=== PATIENT | female | born 1975 | race Hispanic/Latino ===

== ENCOUNTER 2017-10-02 00:08 | Emergency (ER) | payer BC ==
[~2017-10-02 00:08] MED LIST: CIPR-245 PO; FAMO-136 PO; METR500T PO
[2017-10-02 00:45] LABS: EOSINOPHILS % (AUTO) 2.6 % (0.0-8.0); HEMATOCRIT 42.1 % (36-48); LYMPHOCYTES % (AUTO) 19.3 % (21.0-51.0); MEAN CORPUSCULAR HEMOGLOBIN 29.3 pg (27.0-33.0); MEAN CORPUSCULAR HGB CONC 34.5 g/dL (32.0-36.0); MONOCYTES % (AUTO) 6.3 % (3.0-13.0); NEUTROPHILS % (AUTO) 70.8 % (40.0-77.0); PLATELET COUNT (AUTO) 273 K/uL (130-400); RED BLOOD CELL COUNT(AUTO) 4.95 MIL/uL (4.00-5.50); RED CELL DISTRIBUTION WIDTH 13.2 % (11.0-15.5); WHITE BLOOD COUNT (AUTO) 14.2 K/uL (4.8-10.8)
[2017-10-02 00:48] LABS: APPEARANCE,URINE Clear (CLEAR); BILIRUBIN,URINE Negative (NEGATIVE); COLOR,URINE Yellow (YELLOW); GLUCOSE, URINE (UA) Negative (NEGATIVE); KETONES,URINE Negative (NEGATIVE); LEUKOCYTE ESTERASE ,URINE Moderate (NEGATIVE); NITRATE,URINE Negative (NEGATIVE); OCCULT BLOOD,URINE Negative (NEGATIVE); PH,URINE 5.5 (5.0-8.0); PROTEIN,URINE Negative (NEGATIVE)
[2017-10-02 00:55] LABS: BACTERIA,URINE None Seen /HPF (None Seen); RBC,URINE None Seen /HPF (0-1); SQUAMOUS EPITHELIAL CELL,UR Few /HPF (0-2); WBC,URINE 0-1 /HPF (0-1)
[2017-10-02 00:56] LABS: CREATININE 0.7 mg/dL (0.5-1.5); POTASSIUM 3.6 mmol/L (3.5-5.1)
[2017-10-02 01:01] LABS: BILIRUBIN,TOTAL 0.2 mg/dL (0.2-1.0); TOTAL PROTEIN, SERUM 8.1 g/dL (6.0-8.3)
[2017-10-02 01:23] LABS: AMPHET/METH SCREEN,URINE NEGATIVE (NEGATIVE); BENZODIAZEPINES SCREEN,URINE NEGATIVE (NEGATIVE); CANNABINOID SCREEN,URINE NEGATIVE (NEGATIVE); COCAINE SCREEN,URINE NEGATIVE (NEGATIVE); OPIATE SCREEN,URINE NEGATIVE (NEGATIVE); PHENCYCLIDINE SCREEN,URINE NEGATIVE (NEGATIVE)
[2017-10-02] MEDS ORDERED: LIDOCAINE HCL 1% 20 ML VIAL ONE (01:55)
[2017-10-02] MEDS ORDERED: DEXAMETHASONE SOD PHOSPHATE 10MG/ML 1ML VIAL ONE (01:55)
[2017-10-02] MEDS ORDERED: CEFTRIAXONE SODIUM 1 GM ONE (01:56)
[2017-10-02 02:24] LABS: BARBITURATE SCREEN, URINE NEGATIVE (NEGATIVE)
== END 2017-10-02 02:25 | disposition home or self-care (01) ==
LOC: EDH 00:08
DX: J18.9 Pneumonia, unspecified organism (principal)
CPT/HCPCS: 36415; 71046; 80053; 80305; 81001; 83880; 84484; 85025; 87804 ×2; 93005; 96372 ×2; 99285; J0696; J1100

== ENCOUNTER 2018-10-19 23:05 | Emergency (ER) | payer BC ==
[~2018-10-19 23:05] MED LIST changes: -CIPR-245 PO; -FAMO-136 PO; +IBUP-2353 PO; +LEVE500T8 PO; +LEVO500T2 PO; -METR500T PO
== END 2018-10-20 00:13 | disposition home or self-care (01) ==
LOC: EDH 23:05
DX: S50.01XA Contusion of right elbow, initial encounter (principal); Z87.442 Personal history of urinary calculi; Z98.51 Tubal ligation status; Z88.1 Allergy status to other antibiotic agents; W18.39XA Other fall on same level, initial encounter; Y93.89 Activity, other specified; Y92.098 Other place in other non-institutional residence as the place of occurrence of the external cause; Y99.8 Other external cause status
CPT/HCPCS: 73080

== ENCOUNTER 2019-01-15 17:25 | Emergency (ER) | payer BC ==
[2019-01-15] MEDS ORDERED: KETOROLAC TROMETHAMINE 15MG/ML ONE (17:47)
[2019-01-15] MEDS ORDERED: ONDANSETRON HCL 4 MG/2 ML VIAL ONE (17:47)
[2019-01-15] MEDS ORDERED: SODIUM CHLORIDE 0.9% 1000ML 1,000 ML IV ONE (17:47)
[2019-01-15 18:05] LABS: APPEARANCE,URINE Clear (CLEAR); BILIRUBIN,URINE Negative (NEGATIVE); COLOR,URINE Yellow (YELLOW); GLUCOSE, URINE (UA) Negative (NEGATIVE); KETONES,URINE Negative (NEGATIVE); LEUKOCYTE ESTERASE ,URINE Moderate (NEGATIVE); NITRATE,URINE Negative (NEGATIVE); OCCULT BLOOD,URINE Negative (NEGATIVE); PH,URINE 5.5 (5.0-8.0); PROTEIN,URINE Negative (NEGATIVE)
[2019-01-15 18:21] LABS: HCG,QUAL RESULT NEGATIVE (NEGATIVE)
[2019-01-15 18:21] LABS: BASOPHILS % (AUTO) 0.7 % (0.0-5.0); EOSINOPHILS % (AUTO) 1.7 % (0.0-8.0); HEMATOCRIT 41.7 % (36-48); LYMPHOCYTES % (AUTO) 11.9 % (21.0-51.0); MEAN CORPUSCULAR HEMOGLOBIN 29.2 pg (27.0-33.0); MEAN CORPUSCULAR HGB CONC 33.8 g/dL (32.0-36.0); MEAN CORPUSCULAR VOLUME 86.4 fL (79-99); MONOCYTES % (AUTO) 6.4 % (3.0-13.0); NEUTROPHILS % (AUTO) 79.3 % (40.0-77.0); NUCLEATED RED BLOOD CELLS 0.1 % (0.0-0.19); PLATELET COUNT (AUTO) 264 K/uL (130-400); RED BLOOD CELL COUNT(AUTO) 4.83 MIL/uL (4.00-5.50); RED CELL DISTRIBUTION WIDTH 13.2 % (11.0-15.5); WHITE BLOOD COUNT (AUTO) 12.7 K/uL (4.8-10.8)
[2019-01-15 18:37] LABS: CREATININE 0.7 mg/dL (0.5-1.5); POTASSIUM 3.6 mmol/L (3.5-5.1)
[2019-01-15 18:40] LABS: INR 0.97 (0.85-1.15); PARTIAL THROMBOPLASTIN TIME 31.9 SEC (26.3-35.5); PROTHROMBIN TIME 10.2 SEC (9.6-11.6)
[2019-01-15 18:41] LABS: ALBUMIN 3.8 g/dL (3.5-5.0); BILIRUBIN,TOTAL 0.7 mg/dL (0.2-1.0); TOTAL PROTEIN, SERUM 7.9 g/dL (6.0-8.3)
[2019-01-15 18:43] LABS: RBC,URINE 0-1 /HPF (0-1)
[2019-01-15 18:44] LABS: BACTERIA,URINE Few /HPF (None Seen); MUCUS,URINE Few LPF (None Seen); SQUAMOUS EPITHELIAL CELL,UR Few /HPF (0-2)
[2019-01-15] MEDS ORDERED: METRONIDAZOLE 500 MG TABLET ONE (20:00)
[2019-01-15] MEDS ORDERED: LEVOFLOXACIN 500 MG TABLET ONE (20:00)
== END 2019-01-15 21:22 | disposition home or self-care (01) ==
LOC: EDH 17:25
DX: K57.32 Diverticulitis of large intestine without perforation or abscess without bleeding (principal); R11.10 Vomiting, unspecified; R19.7 Diarrhea, unspecified; Z88.6 Allergy status to analgesic agent; Z87.442 Personal history of urinary calculi
CPT/HCPCS: 36415; 74176; 80053; 81001; 81025; 83690; 85025; 85610; 85730; 96361; 96374; 96375; 99285; J1885; J2405; J7030

== ENCOUNTER 2021-03-25 11:38 | Emergency (ER) | payer BC, OTHER ==
[~2021-03-25] VITALS: Ht 162.6 cm; Wt 77.6 kg
[~2021-03-25 11:38] MED LIST changes: -IBUP-2353 PO; +IBUP-2784 PO; +LEVE-43 PO; -LEVE500T8 PO
[2021-03-25 12:14] LABS: APPEARANCE,URINE Cloudy (CLEAR); BILIRUBIN,URINE Negative (NEGATIVE); COLOR,URINE Dark Yellow (YELLOW); GLUCOSE, URINE (UA) Negative (NEGATIVE); KETONES,URINE Trace mg/dL (NEGATIVE); LEUKOCYTE ESTERASE ,URINE Moderate (NEGATIVE); NITRATE,URINE Positive (NEGATIVE); OCCULT BLOOD,URINE Negative (NEGATIVE); PH,URINE 5.5 (5.0-8.0); PROTEIN,URINE Trace mg/dL (NEGATIVE)
[2021-03-25 12:22] LABS: AMPHET/METH SCREEN,URINE NEGATIVE (NEGATIVE); BARBITURATE SCREEN, URINE NEGATIVE (NEGATIVE); BENZODIAZEPINES SCREEN,URINE NEGATIVE (NEGATIVE); CANNABINOID SCREEN,URINE NEGATIVE (NEGATIVE); COCAINE SCREEN,URINE NEGATIVE (NEGATIVE); OPIATE SCREEN,URINE NEGATIVE (NEGATIVE); PHENCYCLIDINE SCREEN,URINE NEGATIVE (NEGATIVE)
[2021-03-25 12:25] LABS: BACTERIA,URINE Many /HPF (None Seen); RBC,URINE 0-1 /HPF (0-1)
[2021-03-25 12:26] LABS: MUCUS,URINE Few LPF (None Seen); SQUAMOUS EPITHELIAL CELL,UR Few /HPF (0-2)
[2021-03-25] MEDS ORDERED: KETOROLAC 30MG VIAL (30MG/ML) IV STA (12:31)
[2021-03-25 12:37] LABS: HCG,QUAL RESULT NEGATIVE (NEGATIVE)
[2021-03-25] MEDS ORDERED: NAPR500T6 PO (14:23)
[2021-03-25 14:38] VITALS: BP 130/69
== END 2021-03-25 14:40 | disposition home or self-care (01) ==
LOC: EDH 11:38
DX: M54.50 Low back pain, unspecified (principal)
CPT/HCPCS: 72100; 80305; 81001; 81025; 87077; 87088; 87186; 96374; 99284; J1885

== ENCOUNTER 2023-02-10 16:17 | Emergency (ER) | payer BC, OTHER ==
[~2023-02-10] VITALS: Ht 162.6 cm; Wt 81.6 kg
[~2023-02-10 16:17] MED LIST changes: +NAPR500T6 PO
[2023-02-10 17:09] VITALS: BP 126/84; PULSE 68; RESP 16; O2SAT 99
== END 2023-02-10 21:03 | disposition left against medical advice (07) ==
LOC: EDH 16:17
DX: R42 Dizziness and giddiness (principal); Z53.21 Procedure and treatment not carried out due to patient leaving prior to being seen by health care provider

== ENCOUNTER 2025-02-21 16:31 | Emergency (ER) | payer BC, OTHER ==
[~2025-02-21] VITALS: Ht 165.1 cm; Wt 78.0 kg
[~2025-02-21 16:31] MED LIST changes: +NAPR-1506 PO; -NAPR500T6 PO
--- NOTE | 2025-02-21 16:46 | ERN ---
ED Note History of Present Illness Stated Complaint: COVID Chief Complaint: Cough Time Seen by MD: 16:45 Time Seen by Midlevel: 16:50 Dictation: 49-year-old female coming in with complaints of generalized body weakness and aches, throat pain. Patient states he took a COVID test today and was positive. Denies having any chest pain, short of breath, headaches, nausea or vomiting. Allergies: Coded Allergies: No Known Allergies (Verified Allergy, Unknown, 11/01/14) ceftriaxone (Unverified Allergy, Unknown, 02/05/18) Home Meds Active Scripts Naproxen (Naproxen) 500 Mg Tablet.dr, 500 MG PO BIDPC, #30 TAB Prov:RAD MANRIQUE NP 03/25/21 Levofloxacin (Levaquin) 500 Mg Tablet, 500 MG PO DAILY for 5 Days, TAB Prov:TRUE HOUSEP 02/07/18 Levetiracetam (Keppra) 500 Mg Tablet, 500 MG PO BID for 30 Days, TAB Prov:TRUE HOUSEP 02/07/18 Reported Medications Ibuprofen (Ibuprofen 200 mg Tablet) 200 Mg Tablet, 400 MG PO DAILY PRN for PAIN LEVEL 1 TO 5, TAB 02/05/18 Past Medical History Past Medical History: Hypertension, Seizure Surgical History: BTL Review of System Dictation Constitutional: Negative for fever,chills, and weight loss Eyes: Negative for injury, pain,redness, and discharge ENT: Negative for injury,pain or swelling, complaining of sore throat Cardiovascular: Negative for chest pain, palpitations, and edema Respiratory: Negative for shortness of breath, complaining of cough Abdomen/GI: Negative for abdominal pain, nausea, vomiting, diarrhea, and constipation Back: Negative for injury and pain : Negative for injury, bleeding and discharge MS/Extremity: Negative for injury and deformity Skin: Negative for rash, and discoloration Neuro: Negative for headache, weakness, numbness, tingling, and seizure Psych: Negative for suicide ideation, homicidal ideation, and hallucinations Review of Systems: was completed Initial Vital Sign VS Vital Signs Date Time Temp Pulse Resp B/P (MAP) Pulse Ox O2 Delivery O2 Flow Rate FiO2 02/21/25 16:32 98.1 92 18 157/90 98 02/21/25 19:22 Room Air* 0 21 Physical Exam Dictation General: awake, alert, NAD Head/Face: Normocephalic, atraumatic Eyes: PERRL, EOMI, vision at baseline ENT: oral cavity clear, TMs clear, no signs of infection Neck: Trachea midline, supple, no nuchal rigidity Cardiovascular: RRR, normal S1/S2, No MRGs, no JVD Respiratory: CTAB, no respiratory distress, No rales or wheezes Abdomen: Soft, non-tender, non-distended, normal bowel sounds, no guarding or rebound. Skin: Warm, dry, normal turgor, no rash MS/Extremity: Pulses equal, no cyanosis, neurovascular intact, FROM Neuro: COAx4, GCS 15, strength 5/5, CN 2-12 intact, normal cerebellar exam, normal gait, Psych: Normal behavior, mood, and affect normal Results (Laboratory/Radiology) Laboratory/Radiology Laboratory Tests Test 02/21/25 19:19 Group A Streptococcus Rapid negative (NEGATIVE) Labs Reviewed?: Yes ED Course ED Course Orders Procedure Category Date Status Time Ketorolac PHA 02/21/25 In Process Tromethamine 15mg/Ml 16:39 Benzonatate 100 Mg PHA 02/21/25 In Process Capsule (Tessalon 100 16:39 Rapid (Group A Strep) LAB 02/21/25 Complete 19:19 Current Medications Medications (Trade) Dose Ordered Sig/Tosin Route PRN Reason Start Time Stop Time Status Last Admin Dose Admin Benzonatate (Tessalon 100mg Caps) 200 mg ONCE PO 02/21/25 16:39 02/21/25 21:30 02/21/25 18:56 Ketorolac Tromethamine (toRADol) 15 mg ONCE IM 02/21/25 16:39 02/21/25 21:30 02/21/25 18:56 Vital Signs Date Time Temp Pulse Resp B/P (MAP) Pulse Ox O2 Delivery O2 Flow Rate FiO2 02/21/25 19:22 98.6 88 18 138/78 98 Room Air* 0 21 02/21/25 16:32 98.1 92 18 157/90 98 Medical Decision Making MDM MDM: 49-year-old female coming in with complaints of generalized body weakness and aches, throat pain. Patient states he took a COVID test today and was positive. Denies having any chest pain, short of breath, headaches, nausea or vomiting. Negative. Discussed with the patient that she does not positive for COVID this will last from anywhere from 7-10 days she needs to take [id number] symptomatic medication like Mucinex, phenylephrine. We will prescribe cough medication to take at home. Educated to follow up with PCP in 1-2 days or to return to the hospital if any symptoms worsen. Differential diagnosis: Strep, viral syndrome, pharyngitis Rationale: Tests considered and ordered secondary to shared decision making include: Previous outside records reviewed: Old ER visits. Risk of complication and/or morbidity or mortality of patient management: None Medications-Per medication reconciliation Need for hospitalization: Patient does not meet criteria for hospitalization. Need for emergency major/minor surgery: No There are no social concerns with this patient. Prescription drug management Prescriptions will include symptomatic care Patient's prior external medical records from other ER visits were reviewed by me as indicated. Prior testing and results from previous visits were reviewed. Prior tests were taken into account with medical decision making and resource utilization, independent historian/historians were used to obtain complete medical history. I independently interpreted the test that were performed, results were reviewed by me and considered findings on radiology if ordered. Medical management and examination interpretation discussions were had by me with other qualified healthcare professionals as indicated for the patient's care. DX & DISP Disposition: Discharge Departure Impression: Primary Impression: Viral pharyngitis Additional Impression: COVID-19 Condition: Stable Scripts Benzonatate (Benzonatate) 200 Mg Capsule 1 CAP PO TIDP PRN for cough for 5 Days, #15 CAP 0 Refills Prov: QUYEN RUIZ UNDER WATER ASSISTANT 02/21/25 Referrals: DARLENE PLUMMER (PCP) Time of Disposition: 19:39 I have reviewed the case, and I agree with, Diagnosis and Plan QUYEN RUIZ UNDER WATER ASSISTANT Feb 21, 2025 16:46
[2025-02-21] MEDS: BENZONATATE 100 MG CAPSULE PO SCH (18:56)
[2025-02-21 19:22] VITALS: BP 138/78; PULSE 88; RESP 18; TEMP 98.6; O2SAT 98
[2025-02-21] MEDS ORDERED: BENZ200C53 PO (19:49)
== END 2025-02-21 20:02 | disposition home or self-care (01) ==
LOC: EDH 16:31
DX: U07.1 COVID-19 (principal); J02.8 Acute pharyngitis due to other specified organisms; B97.89 Other viral agents as the cause of diseases classified elsewhere; I10 Essential (primary) hypertension; Z79.899 Other long term (current) drug therapy; Z88.1 Allergy status to other antibiotic agents; Z98.51 Tubal ligation status
CPT/HCPCS: 99284; 87880; 96372; J1885